=== PATIENT | female | born 1995 | race Caucasian/White ===

== ENCOUNTER 2023-12-10 19:17 | Emergency (ER) | payer MEDICAID ==
[~2023-12-10] VITALS: Ht 160 cm; Wt 85.7 kg
[2023-12-10 22:30] VITALS: TEMP 98.1
[2023-12-10 23:14] LABS: BASOPHILS % (AUTO) 0.4 % (0.0-2.0); EOSINOPHILS % (AUTO) 0.1 % (0.0-6.0); HEMATOCRIT 38 % (33-45); HEMOGLOBIN 12.7 g/dL (11.5-14.8); LYMPHOCYTES # (AUTO) 1.5 K/uL (0.8-4.8); LYMPHOCYTES % (AUTO) 14.9 % (20.0-44.0); MEAN CORPUSCULAR HEMOGLOBIN 31 PG (26.0-33.0); MEAN CORPUSCULAR HGB CONC 34 g/dl (31.0-36.0); MEAN CORPUSCULAR VOLUME 94 fL (82-100); MONOCYTES # (AUTO) 0.2 K/uL (0.1-1.30); MONOCYTES % (AUTO) 2.3 % (2.0-12.0); NEUTROPHILS # (AUTO) 8.2 K/uL (1.8-8.9); NEUTROPHILS % (AUTO) 82.3 % (43.0-81.0); PLATELET COUNT (AUTO) 301 K/uL (150-450); RED BLOOD CELL COUNT(AUTO) 4.04 MIL/uL (4.0-5.2); RED CELL DISTRIBUTION WIDTH 13.2 % (11.5-15.0)
[2023-12-10] MEDS ORDERED: ONDANSETRON HCL/PF 4 MG/2 ML VIAL ONE (23:20)
[2023-12-10 23:25] LABS: CALCIUM, SERUM 9.3 mg/dL (8.5-10.1); CREATININE 0.5 mg/dL (0.6-1.3); POTASSIUM 3.7 mmol/L (3.5-5.1)
[2023-12-10] MEDS: IV NS 0.9% 1,000 ML IV ONE (23:25)
[2023-12-10 23:26] LABS: APPEARANCE,URINE CLEAR (CLEAR); BILIRUBIN,URINE NEGATIVE (NEGATIVE); BLOOD, URINE TRACE-INTA Ery/uL (NEGATIVE); COLOR,URINE YELLOW (YELLOW); KETONES,URINE 1+ mg/dL (NEGATIVE); LEUKOCYTE ESTERASE ,URINE NEGATIVE (NEGATIVE); NITRITE, URINE NEGATIVE (NEGATIVE); PROTEIN,URINE NEGATIVE (NEGATIVE); UGLUCOSE NEGATIVE (NEGATIVE); UROBILINOGEN,URINE 0.2 EU/dL (0.2)
[2023-12-10] MEDS: ONDANSETRON HCL/PF - ER 4 MG/2 ML VIAL IV ONE (23:26)
[2023-12-10 23:30] LABS: ALBUMIN 4.1 g/dL (3.4-5.0); BILIRUBIN,TOTAL 0.5 mg/dL (0.2-1.0)
[2023-12-10 23:33] LABS: PREGNANCY TEST URINE QUAL NEGATIVE (NEGATIVE)
[2023-12-10 23:41] LABS: ADD URINE CULTURE NO; BACTERIA,URINE None seen /HPF (None Seen); RBC,URINE 0-2 /HPF (0-2); SQUAMOUS EPITHELIAL CELL,UR Rare /HPF (None Seen); WBC,URINE 0-2 /HPF (0-3)
[2023-12-11] MEDS ORDERED: ONDANSETRON HCL/PF 4 MG/2 ML VIAL ONE (02:17)
[2023-12-11] MEDS: ONDANSETRON HCL/PF - ER 4 MG/2 ML VIAL IV ONE (02:24)
[2023-12-11] MEDS ORDERED: ONDA4TAB5 PO (02:38)
[2023-12-11 02:46] VITALS: BP 124/75; O2SAT 99
== END 2023-12-11 02:45 | disposition left against medical advice (07) ==
LOC: ER 19:26
DX: R11.2 Nausea with vomiting, unspecified (principal); R10.9 Unspecified abdominal pain
CPT/HCPCS: 99285; 74176; 96374; 96361; 85025; 83690; 84703; 81001; 36415; 80053; 96376; J2405 ×4; J7030

== ENCOUNTER 2024-04-08 07:24 | Emergency (ER) | payer MEDICAID ==
[~2024-04-08] VITALS: Ht 160 cm; Wt 81.2 kg
[~2024-04-08 07:24] MED LIST: ONDA4TAB5 PO
[2024-04-08 08:07] VITALS: BP 117/75; TEMP 98.3
[2024-04-08] MEDS ORDERED: TRAM50TA2 PO (08:20)
[2024-04-08] MEDS ORDERED: AMOX500C2 PO (08:20)
[2024-04-08] MEDS ORDERED: HYDR-4303 PO (08:24)
[2024-04-08 08:25] VITALS: O2SAT 98
== END 2024-04-08 08:27 | disposition home or self-care (01) ==
LOC: ER 07:28
DX: S02.5XXA Fracture of tooth (traumatic), initial encounter for closed fracture (principal); K08.89 Other specified disorders of teeth and supporting structures; W18.39XA Other fall on same level, initial encounter; Y93.89 Activity, other specified; Y92.89 Other specified places as the place of occurrence of the external cause; Y99.8 Other external cause status

== ENCOUNTER 2025-01-27 08:25 | Emergency (ER) | payer MEDICAID ==
[~2025-01-27] VITALS: Ht 157.5 cm; Wt 69.4 kg
[~2025-01-27 08:25] MED LIST changes: +AMOX500C2 PO; +HYDR-4303 PO
[2025-01-27 08:34] VITALS: BP 125/71; TEMP 98.5; O2SAT 97
[2025-01-27] MEDS ORDERED: IBUP-1490 PO (08:53)
[2025-01-27] MEDS ORDERED: ONDA4TAB11 PO (08:53)
[2025-01-27] MEDS ORDERED: ONDANSETRON HCL/PF 4 MG/2 ML VIAL ONE (08:54)
[2025-01-27] MEDS ORDERED: ACET-73 PO (09:00)
[2025-01-27] MEDS: IV NS 0.9% 1,000 ML BAG IV ONE (09:07)
[2025-01-27] MEDS: ONDANSETRON HCL/PF 4 MG/2 ML VIAL IVP ONE (09:07)
== END 2025-01-27 09:08 | disposition home or self-care (01) ==
LOC: ER 08:33
DX: B34.9 Viral infection, unspecified (principal)
CPT/HCPCS: J2405; J7030